=== PATIENT | male | born 1990 | race Caucasian/White ===

== ENCOUNTER 2020-08-05 20:37 | Inpatient (IN) | payer MEDICAID ==
[~2020-08-05] VITALS: Ht 185.4 cm; Wt 77.2 kg
[~2020-08-05 20:37] MED LIST: PANT-31 PO; QUET200T PO
[2020-08-05] MEDS ORDERED: LORazepam 2 MG/ML VIAL IM ONE (22:15)
[2020-08-05] MEDS ORDERED: HALOPERIDOL LACTATE 5 MG/ML VIAL IM ONE (22:15)
[2020-08-05] MEDS ORDERED: DiphenhydrAMINE HCL 50 MG/ML VIAL IM ONE (22:15)
[2020-08-05 23:05] LABS: COVID AG,FIA SOURCE NASOPHARYNGEAL
[2020-08-05 23:33] LABS: BASOPHILS % (AUTO) 0.8 % (0.0-2.0); EOSINOPHILS % (AUTO) 2.5 % (1.0-6.0); HEMOGLOBIN 12.5 g/dL (13.5-17.5); LYMPHOCYTES % (AUTO) 35.7 % (22.0-44.0); MEAN CORPUSCULAR HEMOGLOBIN 32.7 pg (26.0-34.0); MEAN CORPUSCULAR HGB CONC 33.8 G/dL (31.0-37.0); MEAN CORPUSCULAR VOLUME 97 fL (80-100); MONOCYTES # (AUTO) 0.7 K/uL (0.1-1.0); MONOCYTES % (AUTO) 8.1 % (2.0-9.0); NEUTROPHILS # (AUTO) 4.4 K/uL (1.8-7.7); NEUTROPHILS % (AUTO) 52.9 % (40.0-70.0); PLATELET COUNT (AUTO) 240 K/uL (150-450); RED BLOOD CELL COUNT(AUTO) 3.82 MIL/uL (4.50-5.90); RED CELL DISTRIBUTION WIDTH 13.7 % (11.5-14.5)
[2020-08-05 23:42] LABS: ANION GAP 9 mmol/L (8-16); CALCIUM, TOTAL 8.6 mg/dL (8.8-10.5); CARBON DIOXIDE 27 mmol/L (22-29); CHLORIDE 104 mmol/L (98-107); CREATININE 0.73 mg/dL (0.60-1.30); GLOMERULAR FILTR. RATE CALC > 60 mL/min (>60); GLUCOSE,RANDOM 84 mg/dL (70-110); POTASSIUM 3.5 mmol/L (3.5-5.1); SODIUM SERUM 140 mmol/L (136-145); UREA NITROGEN, BLOOD 20 mg/dL (7-18)
[2020-08-05 23:47] LABS: ALANINE AMINOTRANSFERASE 79 U/L (12-78); ALBUMIN 3.6 g/dL (3.4-5.0); ALKALINE PHOSPHATASE 71 U/L (46-116); ASPARTATE AMINOTRANSFERASE 37 U/L (15-37); TOTAL PROTEIN, SERUM 7.3 g/dL (6.4-8.2)
[2020-08-06 00:03] LABS: AMPHET/METH SCREEN,URINE POSITIVE (NEGATIVE); BARBITURATE SCREEN, URINE NEGATIVE (NEGATIVE); BENZODIAZEPINES SCREEN,URINE NEGATIVE (NEGATIVE); CANNABINOID SCREEN,URINE POSITIVE (NEGATIVE); COCAINE SCREEN,URINE NEGATIVE (NEGATIVE); METHADONE SCREEN, URINE NEGATIVE (NEGATIVE); OPIATE SCREEN,URINE NEGATIVE (NEGATIVE)
[2020-08-06 00:04] LABS: PHENCYCLIDINE SCREEN,URINE NEGATIVE (NEGATIVE)
[2020-08-06] MEDS ORDERED: LORazepam 2 MG TABLET PO PRN (00:30)
[2020-08-06] MEDS ORDERED: HALOPERIDOL 5 MG TABLET PO PRN (00:30)
[2020-08-06 09:08] VITALS: BP 107/63
[2020-08-06] MEDS: PANTOPRAZOLE SODIUM 40 MG DR TABLET PO SCH (11:57)
[2020-08-06 16:07] VITALS: BP 106/61
[2020-08-06] MEDS: OLANZapine 5 MG TABLET PO SCH (19:19)
[2020-08-07] MEDS ORDERED: ALBUTEROL SULFATE HFA 90 MCG/PUFF 8 GM INHALER IH PRN (05:45)
[2020-08-07] MEDS ORDERED: ACETAMINOPHEN 325 MG TABLET PO PRN (05:45)
[2020-08-07] MEDS ORDERED: MAGNESIUM HYDROXIDE SUSPENSION 30 ML UDCUP PO PRN (05:45)
[2020-08-07] MEDS ORDERED: MAG HYDROX/AL HYDROX/SIMETH ES 30 ML SUSPENSION UDCUP PO PRN (05:45)
[2020-08-07] MEDS ORDERED: DOCUSATE SODIUM 100 MG CAPSULE PO PRN (05:45)
[2020-08-07] MEDS ORDERED: CloNIDine HCL 0.1 MG TABLET PO PRN (05:45)
[2020-08-07] MEDS ORDERED: GuaiFENesin/D-METHORPHAN [SUGAR-FREE] 200-20MG/10 ML SYRUP UDCUP PO PRN (05:45)
[2020-08-07] MEDS ORDERED: IBUPROFEN 400 MG TABLET PO PRN (05:45)
[2020-08-07] MEDS ORDERED: LOPERAMIDE HCL 2 MG CAPSULE PO PRN (05:45)
[2020-08-07] MEDS ORDERED: ONDANSETRON HCL 4 MG TABLET PO PRN (05:45)
[2020-08-07] MEDS ORDERED: PETROLATUM,WHITE 28 GM JELLY TP PRN (05:45)
[2020-08-07] MEDS ORDERED: NICOTINE 14 MG/24 HOUR PATCH TD PRN (05:45)
[2020-08-07 07:22] LABS: CHOL/HDL RATIO 2.8 (4.2-7.3)
[2020-08-07 08:00] VITALS: BP 120/61
[2020-08-07] MEDS: OLANZapine 5 MG TABLET PO SCH ×2 (08:22→16:24)
[2020-08-07] MEDS: PANTOPRAZOLE SODIUM 40 MG DR TABLET PO SCH (08:22)
[2020-08-07 16:19] VITALS: BP 110/48
[2020-08-08] MEDS: OLANZapine 5 MG TABLET PO SCH ×2 (08:02→16:54)
[2020-08-08] MEDS: PANTOPRAZOLE SODIUM 40 MG DR TABLET PO SCH (08:03)
[2020-08-08 08:12] VITALS: BP 121/53
[2020-08-08 16:35] VITALS: BP 114/57
[2020-08-09] MEDS: OLANZapine 5 MG TABLET PO SCH ×2 (08:18→16:12)
[2020-08-09] MEDS: PANTOPRAZOLE SODIUM 40 MG DR TABLET PO SCH (08:18)
[2020-08-09 08:34] VITALS: BP 117/56
[2020-08-09 16:02] VITALS: BP 111/60
[2020-08-09] MEDS: FERROUS SULFATE 325 MG EC TABLET PO SCH (17:00)
[2020-08-09] MEDS: CEPHALEXIN MONOHYDRATE 500 MG CAPSULE PO SCH (20:24)
[2020-08-09 20:36] LABS: APPEARANCE,URINE CLOUDY (CLEAR); BILIRUBIN,URINE NEGATIVE (NEGATIVE); GLUCOSE, URINE (UA) NEGATIVE (NEGATIVE); KETONES,URINE NEGATIVE (NEGATIVE); LEUKOCYTE ESTERASE ,URINE LARGE (NEGATIVE); NITRATE,URINE NEGATIVE (NEGATIVE); OCCULT BLOOD,URINE NEGATIVE (NEGATIVE); PH,URINE 5.5 (5.0-8.0); PROTEIN,URINE TRACE (NEGATIVE); UROBILINOGEN,URINE 0.2 mg/dL (<=1.0)
[2020-08-09 20:44] LABS: BACTERIA,URINE Moderate /HPF (None Seen); RBC,URINE 0-2 /HPF (0-2); SQUAMOUS EPITHELIAL CELL,UR Moderate /LPF (None Seen); WBC,URINE Full Field /HPF (0-5)
[2020-08-10] MEDS: FERROUS SULFATE 325 MG EC TABLET PO SCH ×2 (06:43→16:25)
[2020-08-10 08:01] VITALS: BP 137/59
[2020-08-10] MEDS: OLANZapine 5 MG TABLET PO SCH ×2 (08:41→16:24)
[2020-08-10] MEDS: CEPHALEXIN MONOHYDRATE 500 MG CAPSULE PO SCH ×3 (08:41→16:25)
[2020-08-10] MEDS: PANTOPRAZOLE SODIUM 40 MG DR TABLET PO SCH (08:41)
[2020-08-10 16:24] VITALS: BP 138/76
[2020-08-11] MEDS: FERROUS SULFATE 325 MG EC TABLET PO SCH ×2 (07:05→16:41)
[2020-08-11] MEDS: OLANZapine 5 MG TABLET PO SCH ×2 (08:28→16:41)
[2020-08-11] MEDS: CEPHALEXIN MONOHYDRATE 500 MG CAPSULE PO SCH ×3 (08:28→16:41)
[2020-08-11] MEDS: PANTOPRAZOLE SODIUM 40 MG DR TABLET PO SCH (08:28)
[2020-08-11 09:23] VITALS: BP 130/70
[2020-08-11 17:14] VITALS: BP 144/73
[2020-08-11 20:08] VITALS: BP 132/74
[2020-08-11] MEDS: ZOLPIDEM TARTRATE 10 MG TABLET PO PRN (22:34)
[2020-08-12] MEDS: FERROUS SULFATE 325 MG EC TABLET PO SCH ×2 (06:57→16:45)
[2020-08-12] MEDS: PANTOPRAZOLE SODIUM 40 MG DR TABLET PO SCH (08:43)
[2020-08-12] MEDS: OLANZapine 5 MG TABLET PO SCH ×2 (08:43→16:45)
[2020-08-12] MEDS: CEPHALEXIN MONOHYDRATE 500 MG CAPSULE PO SCH ×3 (08:43→16:45)
[2020-08-12 09:08] VITALS: BP 134/75
[2020-08-12 16:00] VITALS: BP 114/56
[2020-08-12] MEDS: ZOLPIDEM TARTRATE 10 MG TABLET PO PRN (20:17)
[2020-08-13] MEDS: FERROUS SULFATE 325 MG EC TABLET PO SCH ×2 (07:00→16:23)
[2020-08-13 08:00] VITALS: BP 153/79
[2020-08-13] MEDS: CEPHALEXIN MONOHYDRATE 500 MG CAPSULE PO SCH ×3 (08:21→16:23)
[2020-08-13] MEDS: PANTOPRAZOLE SODIUM 40 MG DR TABLET PO SCH (08:21)
[2020-08-13] MEDS: OLANZapine 5 MG TABLET PO SCH ×2 (08:21→16:23)
[2020-08-13 20:08] VITALS: BP 107/60
[2020-08-13] MEDS: ZOLPIDEM TARTRATE 10 MG TABLET PO PRN (22:22)
[2020-08-14 04:04] VITALS: BP 133/75
[2020-08-14] MEDS: FERROUS SULFATE 325 MG EC TABLET PO SCH (06:33)
[2020-08-14 09:42] VITALS: BP 128/73
[2020-08-14] MEDS: CEPHALEXIN MONOHYDRATE 500 MG CAPSULE PO SCH ×3 (11:12→14:49)
[2020-08-14] MEDS: OLANZapine 5 MG TABLET PO SCH (11:12)
[2020-08-14] MEDS: PANTOPRAZOLE SODIUM 40 MG DR TABLET PO SCH (11:12)
[2020-08-14] MEDS ORDERED: OLAN5TAB2 PO (14:16)
[2020-08-14] MEDS ORDERED: CEPH-582 PO (14:17)
[2020-08-14] MEDS ORDERED: FERR-89 PO (14:17)
== END 2020-08-14 15:05 | disposition home or self-care (01) | DRG 750 ==
LOC: EMS 20:39 → 3EC 08-06 07:21 → 3EI 08-11 14:47
DX: F25.1 Schizoaffective disorder, depressive type (principal); K21.9 Gastro-esophageal reflux disease without esophagitis; F17.200 Nicotine dependence, unspecified, uncomplicated; F15.10 Other stimulant abuse, uncomplicated; D64.9 Anemia, unspecified; N39.0 Urinary tract infection, site not specified; R45.851 Suicidal ideations; Z78.1 Physical restraint status; F12.90 Cannabis use, unspecified, uncomplicated; Z20.828 Contact with and (suspected) exposure to other viral communicable diseases; R74.01 Elevation of levels of liver transaminase levels
CPT/HCPCS: 87086; 87426; G0480; J1200; J1630; J2060